=== PATIENT | male | born 1940 | race Caucasian/White ===

== ENCOUNTER 2018-05-11 22:45 | Inpatient (IN) | payer BC ==
[~2018-05-11] VITALS: Ht 167.6 cm; Wt 56.7 kg
[2018-05-11] MEDS ORDERED: dilTIAZem INJ 125 MG in IV DEXTROSE 5% 100ML 100 ML IV PRN (23:15)
--- NOTE | 2018-05-11 23:15 | PHYS DOC ---
Past Medical History Past Medical History: Cancer (prostate, lung, bone) Past Surgical History: Cholecystectomy Additional Past Surgical Histo: R knee, hernia Smoking: Quit Greater Than 1 Year Alcohol Use: None Drug Use: None Adult General Chief Complaint Chief Complaint: WEAKNESS/GENERALIZED HPI HPI Patient is a 77 year old male with PMH of lung, bone, and prostate cancer who presents to the ED with increased weakness in the past week. In addition, a right lateral abdominal mass has become visible in the past week. Patient admits decreased appetite and has not eaten for about 4 days. Pt denies any dizziness or LOC. He has been sleeping for most of the day lately. He does report some chest pain that is sharp, mild and mostly related to position changes. He admits to increased cough with green sputum production over the last two weeks. He denies any fever, chills, nausea or vomiting. Review of Systems Review of Systems Constitutional: Denies fever or chills [] Eyes: Denies change in visual acuity, redness, or eye pain [] HENT: Denies nasal congestion or sore throat [] Respiratory: Cough with sputum production, and SOB. [] Cardiovascular: Mild chest pain, no palpitations.[] GI: Reports abdominal pain; denies nausea, vomiting, or diarrhea [] : Denies dysuria or hematuria [] Musculoskeletal: Denies back pain or joint pain [] Integument: Denies rash or skin lesions [] Neurologic: Denies headache, focal weakness or sensory changes [] Complete systems were reviewed and found to be within normal limits, except as documented in this note. Current Medications Current Medications Current Medications Medications (Trade) Dose Ordered Sig/[facility] Start Time Stop Time Status Last Admin Dose Admin Aspirin (Cari Aspirin) 325 mg 1X ONCE 05/11/18 23:45 05/11/18 23:46 DC 05/11/18 23:42 325 MG Diltiazem HCl (Cardizem Iv Push) 20 mg 1X ONCE 05/11/18 23:45 05/11/18 23:46 DC 05/11/18 23:42 20 MG Diltiazem HCl 125 mg/Dextrose 125 ml @ 5 mls/hr CONT PRN 05/11/18 23:15 05/12/18 23:14 05/11/18 23:43 5 MLS/HR Sodium Chloride 1,000 ml @ 1,000 mls/hr 1X ONCE 05/11/18 23:45 05/12/18 00:44 DC 05/11/18 23:41 1,000 MLS/HR Allergies Allergies Allergies Coded Allergies Type Severity Reaction Last Updated Verified No Known Drug Allergies 05/11/18 No Physical Exam Physical Exam Constitutional: Emaciated, increased pallor, ill-appearing male. [] HENT: Normocephalic, atraumatic,oropharynx dry, nose normal. [] Eyes: conjunctiva normal, no discharge. [] Neck: Normal range of motion, no tenderness, supple, no meningeal signs Cardiovascular: Heart rate regular rhythm, no murmur [] Lungs & Thorax: Bilateral breath sounds clear to auscultation [] Abdomen: Right lateral abdominal mass that is TTP. Abdomen soft, no rebound tenderness Skin: Warm, dry. [] Extremities: No tenderness, ROM intact, no edema. [] Neurologic: Alert and oriented X 3, normal motor function, normal sensory function, no focal deficits noted. [] Psychologic: Affect normal, judgement normal, mood normal. [] Current Patient Data Vital Signs Vital Signs Date Time Temp Pulse Resp B/P (MAP) Pulse Ox O2 Delivery O2 Flow Rate FiO2 05/11/18 23:50 104 18 96 05/11/18 23:42 117/63 Lab Values Laboratory Tests Test 05/11/18 23:12 White Blood Count 5.2 x10^3/uL (4.0-11.0) Red Blood Count 3.53 x10^6/uL (4.30-5.70) L Hemoglobin 10.4 g/dL (13.0-17.5) L Hematocrit 32.1 % (39.0-53.0) L Mean Corpuscular Volume 91 fL (79-100) Mean Corpuscular Hemoglobin 29 pg (25-35) Mean Corpuscular Hemoglobin Concent 32 g/dL (31-37) Red Cell Distribution Width 17.4 % (11.5-14.5) H Platelet Count 139 x10^3/uL (140-400) L Neutrophils (%) (Auto) 85 % (31-73) H Lymphocytes (%) (Auto) 8 % (24-48) L Monocytes (%) (Auto) 5 % (0-9) Eosinophils (%) (Auto) 1 % (0-3) Basophils (%) (Auto) 1 % (0-3) Neutrophils # (Auto) 4.4 x10^3uL (1.8-7.7) Lymphocytes # (Auto) 0.4 x10^3/uL (1.0-4.8) L Monocytes # (Auto) 0.3 x10^3/uL (0.0-1.1) Eosinophils # (Auto) 0.0 x10^3/uL (0.0-0.7) Basophils # (Auto) 0.0 x10^3/uL (0.0-0.2) Segmented Neutrophils % 74 % (35-66) H Band Neutrophils % 10 % (0-9) H Lymphocytes % 9 % (24-48) L Monocytes % 6 % (0-10) Eosinophils % 1 % (0-5) Toxic Granulation Present Platelet Estimate Adequate (ADEQUATE) Anisocytosis Slight Sodium Level 138 mmol/L (136-145) Potassium Level 3.9 mmol/L (3.5-5.1) Chloride Level 103 mmol/L (98-107) Carbon Dioxide Level 25 mmol/L (21-32) Anion Gap 10 (6-14) Blood Urea Nitrogen 40 mg/dL (8-26) H Creatinine 1.0 mg/dL (0.7-1.3) Estimated GFR (Cockcroft-Gault) 72.3 BUN/Creatinine Ratio 40 (6-20) H Glucose Level 124 mg/dL (70-99) H Lactic Acid Level 1.6 mmol/L (0.4-2.0) Calcium Level 8.0 mg/dL (8.5-10.1) L Magnesium Level 2.4 mg/dL (1.8-2.4) Total Bilirubin 0.6 mg/dL (0.2-1.0) Aspartate Amino Transferase (AST) 36 U/L (15-37) Alanine Aminotransferase (ALT) 36 U/L (16-63) Alkaline Phosphatase 254 U/L (46-116) H Creatine Kinase 27 U/L (39-308) L Creatine Kinase MB (Mass) 0.6 ng/mL (0.0-3.6) Creatine Kinase MB Relative Index % (0-4) Troponin I Quantitative < 0.017 ng/mL (0.000-0.055) Total Protein 6.1 g/dL (6.4-8.2) L Albumin 2.0 g/dL (3.4-5.0) L Albumin/Globulin Ratio 0.5 (1.0-1.7) L Laboratory Tests 05/11/18 23:12 Laboratory Tests 05/11/18 23:12 EKG EKG @2303 Afib RVR at 145bpm, NO ST elevation Radiology/Procedures Radiology/Procedures PROCEDURE: CT CHEST ABDOMEN PELVIS WO EXAM: CT Chest, Abdomen and Pelvis without IV contrast CLINICAL HISTORY: weakness, right lateral abdominal swelling/pain COMPARISON: None. TECHNIQUE: Helical CT of the chest, abdomen and pelvis was performed without intravenous contrast. Axial, coronal and sagittal reformatted images were generated. ---PQRS compliance statement - One or more of the following individualized dose reduction techniques were utilized for this study: 1. Automated exposure control 2. Adjustment of the mA and/or kV according to patient size 3. Use of iterative reconstruction technique--- FINDINGS: Lack of intravenous contrast limits evaluation of solid organs, vasculature, and lymph nodes. Chest: Heart is moderately enlarged. Coronary calcifications are seen. No pericardial effusion. Precarinal lymph node measures 1.7 x 1.1 cm. Small AP window lymph nodes are seen. Evaluation for hilar lymphadenopathy limited given noncontrast exam although prominent hilar lymph nodes are suspected. Trace right pleural effusion. No pneumothorax. Left upper lobe airspace opacities are seen with air bronchograms and associated groundglass component. In addition airspace opacities are seen in the middle lobe and right lower lobe. Abdomen and Pelvis: The liver is cirrhotic in morphology. A 1.5 cm right hepatic lobe hypodense lesion is seen. Accounting for postcholecystectomy change, no biliary ductal dilatation. Spleen is enlarged measuring 15.3 cm in length. Mild nodularity of the left adrenal gland. Right adrenal gland is unremarkable. Multiple bilateral nonobstructing renal calculi are seen. In addition renal cortical calcifications are seen. Left interpolar hypodense lesion is too small to accurately characterize, likely cystic. 2 right upper-interpolar hypodense lesions are nonspecific, possibly hemorrhagic/proteinaceous cysts. Pancreas is unremarkable. No small or large bowel dilatation. Moderate colonic stool content is seen. Colonic diverticulosis without CT evidence for acute diverticulitis. Atherosclerotic calcifications of the aorta and main branches are seen. Mild bladder wall thickening, nonspecific. Trace perihepatic ascites. No definite abdominal or pelvic lymphadenopathy by size criteria. Bones: Degenerative changes of the spine are seen. Bilateral L5 pars defects are noted with anterolisthesis of L5 on S1. Multilevel vertebral body compression fractures post spinal augmentation changes. There is mild height loss of the L1 vertebral body with suspected fracture plane extending to the anterior vertebral body, possibly acute. This may correlate with patient's symptoms. IMPRESSION: 1. Left upper lobe parenchymal airspace opacities with air bronchograms are suspicious for consolidative process such as pneumonia. 2. Prominent and enlarged mediastinal lymph nodes, possibly reactive. 3. Liver is cirrhotic in morphology with splenomegaly. 4. Nonspecific hypodense right hepatic lobe lesion is seen. This can be correlated with prior imaging if available otherwise given cirrhosis, this can be further profiled with MRI. 5. L1 vertebral body height loss, possibly acute, this can be correlated with patient's symptoms and prior imaging if available 6. Colonic diverticulosis without evidence for acute diverticulitis. 7. There are 2 hypodense right upper-interpolar renal lesions, possibly hemorrhagic/proteinaceous cysts. This can be further evaluated by ultrasound if prior imaging is not available. Electronically signed by: Aleksandar Hurd MD (05/12/2018 12:49 AM) [facility] Course & Med Decision Making Course & Med Decision Making Mr. Resendiz is a 77 yo male with lung, bone, and prostate cancer that presents with one week of increased weakness, cough, and shortness of breath. On presentation he was in A Fib RVR. A diltiazem drip was started which subsequently improved the RVR. EKG with routine labs were ordered to r/o cardiac pathology. IV fluids administered to improve hydration status. CT chest / abdomen/pelvis with findings of possible pneumonia. BCX obtained. Empiric antibiotics given. SIRS positive with bandemia and tachycardia. Lactic acid WNL. Patient requiring admission for further evaluation and treatment. Discussed with Dr. Rodríguez (admits for PCP) who is in agreement with admission. Discussed findings and plan with patient and family, who acknowledge understanding and agreement. Dragon Disclaimer Dragon Disclaimer This electronic medical record was generated, in whole or in part, using a voice recognition dictation system. Departure Departure Impression: Primary Impression: Atrial fibrillation with RVR Additional Impressions: Weakness Pneumonia Disposition: ADMITTED INPATIENT Admitting Physician: Miles Rodríguez Condition: GUARDED Referrals: SCOT CARRANZA (PCP) Critical Care Time Critical care time was 30 minutes which includes time at bedside, spent in discussion of patient's care with specialists and/or family members, with interpretation of laboratory and/or radiological studies and is exclusive of procedures. Problem Qualifiers Additional Impressions: Pneumonia Pneumonia type: due to unspecified organism Laterality: unspecified laterality Lung location: unspecified part of lung Qualified Codes: J18.9 - Pneumonia, unspecified organism NIYAH RAMOS DO May 11, 2018 23:15
[2018-05-11 23:22] LABS: BASO % 1 % (0-3); EOS % 1 % (0-3); HEMATOCRIT 32.1 % (39.0-53.0); HEMOGLOBIN 10.4 g/dL (13.0-17.5); LYMPH # 0.4 x10^3/uL (1.0-4.8); LYMPH % 8 % (24-48); MEAN CORPUSCULAR HEMOGLOBIN 29 pg (25-35); MEAN CORPUSCULAR HGB CONC 32 g/dL (31-37); MEAN CORPUSCULAR VOLUME 91 fL (79-100); MONO # 0.3 x10^3/uL (0.0-1.1); MONO % 5 % (0-9); NEUT # 4.4 x10^3uL (1.8-7.7); NEUT % 85 % (31-73); PLATELET COUNT 139 x10^3/uL (140-400); RED BLOOD COUNT 3.53 x10^6/uL (4.30-5.70); RED CELL DISTRIBUTION WIDTH 17.4 % (11.5-14.5); WHITE BLOOD COUNT 5.2 x10^3/uL (4.0-11.0)
[2018-05-11 23:36] LABS: GFR 72.3; POTASSIUM 3.9 mmol/L (3.5-5.1)
[2018-05-11 23:38] LABS: % EOS 1 % (0-5)
[2018-05-11 23:39] LABS: % BANDS 10 % (0-9); % LYMPHS 9 % (24-48); % MONOS 6 % (0-10); % SEGS 74 % (35-66); ANISOCYTOSIS SLIGHT; PLT ESTIMATE ADEQUATE (ADEQUATE); TOXIC GRANULATION PRESENT
[2018-05-11 23:42] LABS: ALBUMIN/GLOBULIN RATIO 0.5 (1.0-1.7); MAGNESIUM 2.4 mg/dL (1.8-2.4); TOTAL BILIRUBIN 0.6 mg/dL (0.2-1.0); TOTAL PROTEIN 6.1 g/dL (6.4-8.2)
[2018-05-11] MEDS ORDERED: ASPIRIN 325 MG TABLET PO ONE (23:45)
[2018-05-11] MEDS ORDERED: dilTIAZem IV PUSH 25 MG/5 ML VIAL IVP ONE (23:45)
[2018-05-11] MEDS ORDERED: IV NORMAL SALINE 1000ML BAG 1,000 ML IV ONE (23:45)
[2018-05-11 23:50] LABS: CREATINE KINASE 27 U/L (39-308)
[2018-05-12] MEDS ORDERED: ONDANSETRON PF 4 MG/2 ML VIAL. IV PRN
[2018-05-12] MEDS ORDERED: fentaNYL PF VIAL 100 MCG/2 ML VIAL IV PRN
--- NOTE | 2018-05-12 00:51 | RAD ---
EXAM: CT Chest, Abdomen and Pelvis without IV contrast CLINICAL HISTORY: weakness, right lateral abdominal swelling/pain COMPARISON: None. TECHNIQUE: Helical CT of the chest, abdomen and pelvis was performed without intravenous contrast. Axial, coronal and sagittal reformatted images were generated. ---PQRS compliance statement - One or more of the following individualized dose reduction techniques were utilized for this study: 1. Automated exposure control 2. Adjustment of the mA and/or kV according to patient size 3. Use of iterative reconstruction technique--- FINDINGS: Lack of intravenous contrast limits evaluation of solid organs, vasculature, and lymph nodes. Chest: Heart is moderately enlarged. Coronary calcifications are seen. No pericardial effusion. Precarinal lymph node measures 1.7 x 1.1 cm. Small AP window lymph nodes are seen. Evaluation for hilar lymphadenopathy limited given noncontrast exam although prominent hilar lymph nodes are suspected. Trace right pleural effusion. No pneumothorax. Left upper lobe airspace opacities are seen with air bronchograms and associated groundglass component. In addition airspace opacities are seen in the middle lobe and right lower lobe. Abdomen and Pelvis: The liver is cirrhotic in morphology. A 1.5 cm right hepatic lobe hypodense lesion is seen. Accounting for postcholecystectomy change, no biliary ductal dilatation. Spleen is enlarged measuring 15.3 cm in length. Mild nodularity of the left adrenal gland. Right adrenal gland is unremarkable. Multiple bilateral nonobstructing renal calculi are seen. In addition renal cortical calcifications are seen. Left interpolar hypodense lesion is too small to accurately characterize, likely cystic. 2 right upper-interpolar hypodense lesions are nonspecific, possibly hemorrhagic/proteinaceous cysts. Pancreas is unremarkable. No small or large bowel dilatation. Moderate colonic stool content is seen. Colonic diverticulosis without CT evidence for acute diverticulitis. Atherosclerotic calcifications of the aorta and main branches are seen. Mild bladder wall thickening, nonspecific. Trace perihepatic ascites. No definite abdominal or pelvic lymphadenopathy by size criteria. Bones: Degenerative changes of the spine are seen. Bilateral L5 pars defects are noted with anterolisthesis of L5 on S1. Multilevel vertebral body compression fractures post spinal augmentation changes. There is mild height loss of the L1 vertebral body with suspected fracture plane extending to the anterior vertebral body, possibly acute. This may correlate with patient's symptoms. IMPRESSION: 1. Left upper lobe parenchymal airspace opacities with air bronchograms are suspicious for consolidative process such as pneumonia. 2. Prominent and enlarged mediastinal lymph nodes, possibly reactive. 3. Liver is cirrhotic in morphology with splenomegaly. 4. Nonspecific hypodense right hepatic lobe lesion is seen. This can be correlated with prior imaging if available otherwise given cirrhosis, this can be further profiled with MRI. 5. L1 vertebral body height loss, possibly acute, this can be correlated with patient's symptoms and prior imaging if available 6. Colonic diverticulosis without evidence for acute diverticulitis. 7. There are 2 hypodense right upper-interpolar renal lesions, possibly hemorrhagic/proteinaceous cysts. This can be further evaluated by ultrasound if prior imaging is not available. Electronically signed by: Aleksandar Hurd MD (05/12/2018 12:49 AM) [facility]
[2018-05-12 01:15] VITALS: BP 103/56
[2018-05-12] MEDS ORDERED: VANCOMYCIN PER PHARMACY MC PRN ×2 (01:15→12:30)
[2018-05-12] MEDS ORDERED: PIPERACILLIN/TAZOBACTAM 4.5 GM in IV NORMAL SALINE 100ML 100 ML IV ONE (01:30)
[2018-05-12] MEDS ORDERED: VANCOMYCIN 1.5 GM in IV NORMAL SALINE 500ML BAG 500 ML IV ONE (02:00)
[2018-05-12] MEDS ORDERED: VIT1TABL32 PO (02:26)
[2018-05-12] MEDS ORDERED: OXYC30TA64 PO (02:26)
[2018-05-12] MEDS ORDERED: MULT-659 PO (02:26)
[2018-05-12] MEDS ORDERED: LEVO25TA4 PO (02:26)
[2018-05-12] MEDS ORDERED: COLC1TAB PO (02:26)
[2018-05-12] MEDS ORDERED: OXYC5TAB4 PO (02:26)
[2018-05-12] MEDS ORDERED: LOSA-73 PO (02:26)
[2018-05-12] MEDS ORDERED: FLUT1BLS3 IH (02:26)
[2018-05-12] MEDS ORDERED: TRAM50TA PO (02:26)
[2018-05-12] MEDS ORDERED: TAMS0.4C2 PO (02:26)
[2018-05-12] MEDS ORDERED: THIA100T57 PO (02:26)
[2018-05-12 03:00] VITALS: BP 87/54
[2018-05-12] MEDS ORDERED: IV NORMAL SALINE 500ML BAG 500 ML IV ONE (03:00)
--- NOTE | 2018-05-12 03:59 | NUR ---
Pharmacy Vancomycin Dosing Note S:Consulted to monitor and dose vancomycin started 05/12/18. O:CAMILLE DARBY is a 77 year old M with Pneumonia . Height: 5 feet, 6 inches Weight: 58.054005 kg [place] Body Weight: 63.80 Adjusted Body Weight: 61.88 Dosing Weight: Actual Other Antibiotics: LEVOFLOXACIN 750 MG Q24H LABS: Last BUN: 40 Last Creatinine: 1 Creatinine Clearance: 51 mL/min Last WBC: 5.2 Last Procalcitonin: Tmax (past 24 hours): Microbiology: I/O: Drug Levels: Last level: on at Last dose given 05/12/18 at 0200 Vancomycin Dosing: Loading Dose: 1500 mg x1 Dosing Weight: Actual Target Trough: 15-20 A: Based on: WT AND CRCL P: 1. Begin Vancomycin 1000 mg IV q18h 2. Follow up Trough level on 05/13/18 at 1330 3. Pharmacy will continue to monitor, follow and adjust therapy as needed. REANNA RM RPH, 05/12/18 [id number] Signed: 05/12/18 at 358 by REANNA RM RPH PHA
[2018-05-12] MEDS: IV NORMAL SALINE 1000ML BAG 1,000 ML IV SCH ×2 (04:06→08:23)
[2018-05-12 07:10] VITALS: BP 100/67
--- NOTE | 2018-05-12 10:50 | EKG ---
[facility] [address] [place] [address] Test Date: 2018-05-11 Test Time: 23:03:01 Pat Name: CAMILLE DARBY Department: Room: 201 1 Gender: M [employer]: : [id number] Requested By: NIYAH RAMOS Order Number: [id number] Reading MD: Gabino Dover MD Measurements Intervals [place] Rate: 145 P: [place]: QRS: -112 QRSD: 132 T: 54 QT: 318 QTc: 497 Interpretive Statements PROBABLE ATRIAL FIBRILLATION WITH ABERRANCY RBBB CANNOT RULE OUT PACING ARTIFACT Electronically Signed On 05-15-2018 10:16:19 [employer] by Gabino Dover MD
[2018-05-12 11:08] VITALS: BP 112/67
[2018-05-12] MEDS ORDERED: DIGOXIN IV 500 MCG/2 ML AMPUL. IV ONE (11:15)
[2018-05-12] MEDS ORDERED: traMADol 50 MG TABLET PO PRN (12:15)
[2018-05-12] MEDS ORDERED: oxyCODONE IR 5 MG TABLET PO PRN (12:15)
--- NOTE | 2018-05-12 12:32 | PDOC ---
Provider Note Provider Note Pt seen.H&P dictated. #[id number] OZZIE BUTCHER MD May 12, 2018 12:32
[2018-05-12] MEDS ORDERED: BUDESONIDE 0.5 MG/2 ML NEBU. NEB SCH (13:00)
[2018-05-12] MEDS ORDERED: TAMSULOSIN 0.4 MG CAP.ER.24H. PO SCH (13:00)
[2018-05-12] MEDS ORDERED: oxyCODONE ER 15 MG TAB.ER.12H PO SCH (13:00)
[2018-05-12] MEDS ORDERED: LEVOTHYROXINE 25 MCG TABLET. PO SCH (13:00)
[2018-05-12] MEDS ORDERED: THIAMINE 100 MG TABLET. PO SCH (13:00)
[2018-05-12] MEDS ORDERED: ALBUTEROL SULFATE 2.5 MG/3 ML NEBU. NEB SCH (13:00)
[2018-05-12] MEDS ORDERED: IPRATRPIUM/ALBUTEROL 0.5/2.5MG 3 ML NEBU. NEB ONE (13:00)
[2018-05-12] MEDS ORDERED: LOSARTAN POTASSIUM 50 MG TABLET. PO SCH (13:00)
[2018-05-12] MEDS ORDERED: MULTIVITAMIN I-VITE TABLET. PO SCH (13:00)
[2018-05-12] MEDS ORDERED: PIPERACILLIN/TAZOBACTAM 3.375 GM in IV NORMAL SALINE 50ML 50 ML IV SCH (13:00)
--- NOTE | 2018-05-12 13:13 | PDOC2 ---
CONSULT Date of Consult Date of Consult DATE: 05/12/18 TIME: 13:08 Reason for Consult Reason for Consult: Atrial fibrillation, rapid Referring Physician Referring Physician: Dr. Rodríguez Identification/Chief Complaint Chief Complaint Weakness Source Source: Caregiver History of Present Illness Reason for Visit: The patient is a 77-year-old male with metastatic lung, bone and prostate cancer. He is followed by the oncology group. His family brought him to the emergency room for progressive weakness. He also has had decreased oral intake over the last several days. Patient was found to be in rapid atrial fibrillation on initial admission. He was treated with IV Cardizem for initial rate control but his blood pressure declined excessively. His rate is now 108. His blood pressure has improved. He continues to feel weak but is responsive. He is received fluid and antibiotics overnight. Past Medical History Cardiovascular: HTN Heme/Onc: Cancer Past Surgical History Past Surgical History: Cholecystectomy, Hernia Repair Family History Family History: Hypertension Social History Quit ALCOHOL: none Current Problem List Problem List Problems Medical Problems: (1) Atrial fibrillation with RVR Status: Acute (2) Pneumonia Status: Acute Current Medications Current Medications Current Medications Sodium Chloride 1,000 ml @ 1,000 mls/hr 1X ONCE IV Last administered on at 23:41; Start 05/11/18 at 23:45; Stop 05/12/18 at 00:44; Status DC Aspirin (Cari Aspirin) 325 mg 1X ONCE PO Last administered on 05/11/18at 23:42 ; Start 05/11/18 at 23:45; Stop 05/11/18 at 23:46; Status DC Diltiazem HCl (Cardizem Iv Push) 20 mg 1X ONCE IVP Last administered on at 23:42; Start 05/11/18 at 23:45; Stop 05/11/18 at 23:46; Status DC Diltiazem HCl 125 mg/Dextrose 125 ml @ 5 mls/hr CONT PRN IV SEE I/O RECORD Last administered on 05/11/18at 23:43; Start 05/11/18 at 23:15; Stop 05/12/18 at 23: 14 Ondansetron HCl (Zofran) 4 mg PRN Q8HRS PRN IV NAUSEA/VOMITING 1ST CHOICE Last administered on 05/12/18at 00:35; Start 05/12/18 at 00:00; Stop 05/12/18 at 23:59 Fentanyl Citrate (Fentanyl 2ml Vial) 50 mcg PRN Q2HR PRN IV SEVERE PAIN Last administered on 05/12/18at 00:35; Start 05/12/18 at 00:00 Piperacillin Sod/ Tazobactam Sod 4.5 gm/Sodium Chloride 100 ml @ 200 mls/hr 1X ONCE IV Last administered on 05/12/18at 01:54; Start 05/12/18 at 01:30; Stop 05/12/18 at 01:59; Status DC Levofloxacin/ Dextrose 150 ml @ 100 mls/hr Q24H IV Last administered on at 01:55; Start 05/12/18 at 01:00 Vancomycin HCl 1.5 gm/Sodium Chloride 500 ml @ 250 mls/hr 1X ONCE IV Last administered on 05/12/18at 01:55; Start 05/12/18 at 02:00; Stop 05/12/18 at 03:59; Status DC Vancomycin HCl (Vanco Per Pharmacy) 1 each PRN DAILY PRN MC SEE COMMENTS Last administered on 05/12/18at 03:59; Start 05/12/18 at 01:15 Sodium Chloride 500 ml @ 500 mls/hr 1X ONCE IV Last administered on 05/12/18at 04:06; Start 05/12/18 at 03:00; Stop 05/12/18 at 03:59; Status DC Sodium Chloride 1,000 ml @ 75 mls/hr [id number] IV Last administered on 05/12/18at 08:23; Start 05/12/18 at 03:30 Vancomycin HCl 1 gm/Sodium Chloride 250 ml @ 250 mls/hr Q18H IV ; Start at 20:00 Vancomycin HCl (Vancomycin Trough Level) 1 each 1X ONCE MC ; Start 05/13/18 at 13:30; Stop 05/13/18 at 13:31 Digoxin (Lanoxin) 250 mcg 1X ONCE IV Last administered on 05/12/18at 11:54; Start 05/12/18 at 11:15; Stop 05/12/18 at 11:16; Status DC Losartan Potassium (Cozaar) 50 mg DAILY PO ; Start 05/12/18 at 13:00 Oxycodone HCl (Roxicodone) 5 mg PRN Q4HRS PRN PO SEVERE PAIN; Start 05/12/18 at 12:15 Tamsulosin HCl (Flomax) 0.4 mg DAILY PO ; Start 05/12/18 at 13:00 Tramadol HCl (Ultram) 50 mg PRN Q6HRS PRN PO MILD-MODERATE PAIN; Start 05/12/18 at 12:15 Multivitamins/ Minerals (I-Marcus) 1 tab DAILY PO ; Start 05/12/18 at 13:00 Non-Formulary Medication (Colchicine/ Probenecid (Probenecid-Colchicine Tabs)) 1 each DAILY PO ; Start 05/13/18 at 09:00; Status UNV Non-Formulary Medication (Fluticasone/ Umeclidin/ Vilanter (Trelegy Ellipta 100- 62.5-25)) 1 each DAILY IH ; Start 05/13/18 at 09:00; Stop 05/13/18 at 09:00; Status DC Levothyroxine Sodium (Synthroid) 25 mcg DAILY06 PO ; Start 05/12/18 at 13:00 Non-Formulary Medication (Multivits,Ca,Min/ Iron/FA/Lycop (Centrum Men's Tablet) ) 1 each DAILY PO ; Start 05/13/18 at 09:00; Status UNV Oxycodone HCl (OxyCONTIN) 30 mg Q12HR PO ; Start 05/12/18 at 13:00 Thiamine Mononitrate (Vitamin B-1) 100 mg DAILY PO ; Start 05/12/18 at 13:00 Budesonide (Pulmicort) 0.5 mg RTBID NEB ; Start 05/12/18 at 13:00 Albuterol Sulfate (Ventolin Neb Soln) 2.5 mg RTQID NEB ; Start 05/12/18 at 13:00 Piperacillin Sod/ Tazobactam Sod 3.375 gm/Sodium Chloride 50 ml @ 100 mls/hr Q6HRS IV ; Start 05/12/18 at 13:00 Vancomycin HCl (Vanco Per Pharmacy) 1 each PRN DAILY PRN MC SEE COMMENTS; Start 05/12/18 at 12:30; Stop 05/12/18 at 12:39; Status DC Albuterol/ Ipratropium (Duoneb) 3 ml RTQID NEB ; Start 05/12/18 at 16:00 Albuterol/ Ipratropium (Duoneb) 3 ml 1X ONCE NEB ; Start 05/12/18 at 13:00; Stop 05/12/18 at 13:01; Status DC Enoxaparin Sodium (Lovenox 40mg Syringe) 40 mg Q24H SQ ; Start 05/12/18 at 14:00 Active Scripts Active Reported Tramadol Hcl 50 Mg Tablet 50 Mg PO Q6HRS PRN Vitamin B-1 (Thiamine Hcl) 100 Mg Tablet 100 Mg PO DAILY Tamsulosin Hcl 0.4 Mg Cap.er.24h 0.4 Mg PO DAILY Oxycontin (Oxycodone HCl) 30 Mg Tab.er.12h 30 Mg PO BID Oxycodone Hcl Immed.release (Oxycodone Hcl) 5 Mg Tablet 5 Mg PO PRN Q4HRS PRN Ocuvite Tablet (Vit A,C & E/Lutein/Minerals) 1 Each Tablet 1 Each PO DAILY Losartan Potassium 50 Mg Tablet 50 Mg PO DAILY Levothyroxine Sodium 25 Mcg Tablet 25 Mcg PO DAILYAC Probenecid-Colchicine Tabs (Colchicine/Probenecid) 1 Each Tablet 1 Each PO DAILY Centrum Men's Tablet (Multivits,Ca,Min/Iron/FA/Lycop) 1 Each Tablet 1 Each PO DAILY Trelegy Ellipta 100-62.5-25 (Fluticasone/Umeclidin/Vilanter) 1 Each Blst.w.dev 1 Each IH DAILY Allergies Allergies: Coded Allergies: No Known Drug Allergies (Unverified , 05/11/18) ROS General: YES: Fatigue, Malaise Respiratory: YES: SOB with excertion Physical Exam General: mild distress Lungs: Other (mildly decreased breath sounds) Heart: Other (irregularly irregular rhythm) Abdomen: Normal bowel sounds Vitals VITALS Vital Signs Date Time Temp Pulse Resp B/P (MAP) Pulse Ox O2 Delivery O2 Flow Rate FiO2 05/12/18 11:54 126 05/12/18 11:08 97.0 24 112/67 (82) 100 Nasal Cannula 2.0 97.0 Labs Labs Laboratory Tests Test 05/11/18 23:12 05/12/18 00:12 05/12/18 03:00 White Blood Count 5.2 x10^3/uL (4.0-11.0) Red Blood Count 3.53 x10^6/uL (4.30-5.70) Hemoglobin 10.4 g/dL (13.0-17.5) Hematocrit 32.1 % (39.0-53.0) Mean Corpuscular Volume 91 fL (79-100) Mean Corpuscular Hemoglobin 29 pg (25-35) Mean Corpuscular Hemoglobin Concent 32 g/dL (31-37) Red Cell Distribution Width 17.4 % (11.5-14.5) Platelet Count 139 x10^3/uL (140-400) Neutrophils (%) (Auto) 85 % (31-73) Lymphocytes (%) (Auto) 8 % (24-48) Monocytes (%) (Auto) 5 % (0-9) Eosinophils (%) (Auto) 1 % (0-3) Basophils (%) (Auto) 1 % (0-3) Neutrophils # (Auto) 4.4 x10^3uL (1.8-7.7) Lymphocytes # (Auto) 0.4 x10^3/uL (1.0-4.8) Monocytes # (Auto) 0.3 x10^3/uL (0.0-1.1) Eosinophils # (Auto) 0.0 x10^3/uL (0.0-0.7) Basophils # (Auto) 0.0 x10^3/uL (0.0-0.2) Segmented Neutrophils % 74 % (35-66) Band Neutrophils % 10 % (0-9) Lymphocytes % 9 % (24-48) Monocytes % 6 % (0-10) Eosinophils % 1 % (0-5) Toxic Granulation Present Platelet Estimate Adequate (ADEQUATE) Anisocytosis Slight Sodium Level 138 mmol/L (136-145) Potassium Level 3.9 mmol/L (3.5-5.1) Chloride Level 103 mmol/L (98-107) Carbon Dioxide Level 25 mmol/L (21-32) Anion Gap 10 (6-14) Blood Urea Nitrogen 40 mg/dL (8-26) Creatinine 1.0 mg/dL (0.7-1.3) Estimated GFR (Cockcroft-Gault) 72.3 BUN/Creatinine Ratio 40 (6-20) Glucose Level 124 mg/dL (70-99) Lactic Acid Level 1.6 mmol/L (0.4-2.0) Calcium Level 8.0 mg/dL (8.5-10.1) Magnesium Level 2.4 mg/dL (1.8-2.4) Total Bilirubin 0.6 mg/dL (0.2-1.0) Aspartate Amino Transf (AST/SGOT) 36 U/L (15-37) Alanine Aminotransferase (ALT/SGPT) 36 U/L (16-63) Alkaline Phosphatase 254 U/L (46-116) Creatine Kinase 27 U/L (39-308) Creatine Kinase MB (Mass) 0.6 ng/mL (0.0-3.6) Creatine Kinase MB Relative Index % (0-4) Troponin I Quantitative < 0.017 ng/mL (0.000-0.055) < 0.017 ng/mL (0.000-0.055) Total Protein 6.1 g/dL (6.4-8.2) Albumin 2.0 g/dL (3.4-5.0) Albumin/Globulin Ratio 0.5 (1.0-1.7) Ammonia 11 mcmol/L (11-34) Laboratory Tests Test 05/11/18 23:12 05/12/18 00:12 05/12/18 03:00 White Blood Count 5.2 x10^3/uL (4.0-11.0) Red Blood Count 3.53 x10^6/uL (4.30-5.70) Hemoglobin 10.4 g/dL (13.0-17.5) Hematocrit 32.1 % (39.0-53.0) Mean Corpuscular Volume 91 fL (79-100) Mean Corpuscular Hemoglobin 29 pg (25-35) Mean Corpuscular Hemoglobin Concent 32 g/dL (31-37) Red Cell Distribution Width 17.4 % (11.5-14.5) Platelet Count 139 x10^3/uL (140-400) Neutrophils (%) (Auto) 85 % (31-73) Lymphocytes (%) (Auto) 8 % (24-48) Monocytes (%) (Auto) 5 % (0-9) Eosinophils (%) (Auto) 1 % (0-3) Basophils (%) (Auto) 1 % (0-3) Neutrophils # (Auto) 4.4 x10^3uL (1.8-7.7) Lymphocytes # (Auto) 0.4 x10^3/uL (1.0-4.8) Monocytes # (Auto) 0.3 x10^3/uL (0.0-1.1) Eosinophils # (Auto) 0.0 x10^3/uL (0.0-0.7) Basophils # (Auto) 0.0 x10^3/uL (0.0-0.2) Segmented Neutrophils % 74 % (35-66) Band Neutrophils % 10 % (0-9) Lymphocytes % 9 % (24-48) Monocytes % 6 % (0-10) Eosinophils % 1 % (0-5) Toxic Granulation Present Platelet Estimate Adequate (ADEQUATE) Anisocytosis Slight Sodium Level 138 mmol/L (136-145) Potassium Level 3.9 mmol/L (3.5-5.1) Chloride Level 103 mmol/L (98-107) Carbon Dioxide Level 25 mmol/L (21-32) Anion Gap 10 (6-14) Blood Urea Nitrogen 40 mg/dL (8-26) Creatinine 1.0 mg/dL (0.7-1.3) Estimated GFR (Cockcroft-Gault) 72.3 BUN/Creatinine Ratio 40 (6-20) Glucose Level 124 mg/dL (70-99) Lactic Acid Level 1.6 mmol/L (0.4-2.0) Calcium Level 8.0 mg/dL (8.5-10.1) Magnesium Level 2.4 mg/dL (1.8-2.4) Total Bilirubin 0.6 mg/dL (0.2-1.0) Aspartate Amino Transf (AST/SGOT) 36 U/L (15-37) Alanine Aminotransferase (ALT/SGPT) 36 U/L (16-63) Alkaline Phosphatase 254 U/L (46-116) Creatine Kinase 27 U/L (39-308) Creatine Kinase MB (Mass) 0.6 ng/mL (0.0-3.6) Creatine Kinase MB Relative Index % (0-4) Troponin I Quantitative < 0.017 ng/mL (0.000-0.055) < 0.017 ng/mL (0.000-0.055) Total Protein 6.1 g/dL (6.4-8.2) Albumin 2.0 g/dL (3.4-5.0) Albumin/Globulin Ratio 0.5 (1.0-1.7) Ammonia 11 mcmol/L (11-34) Images Images CT scan shows mild cardiomegaly with no pericardial effusion Assessment/Plan Assessment/Plan 1. Metastatic lung, bone and prostate cancer. Patient is followed by the oncology service. He has had progressive weakness over the past several days but is improved mildly today after IV fluids and antibiotics as per his family' s report. 2. Atrial fibrillation. Initial rapid rate has now improved. IV Cardizem as this being Senior due to mild hypotension patient has been given additional dose of digoxin. Would prefer that he stay in the hospital overnight and will treat with oral calcium channel blockers if his pressure allows. However he is considering leaving the hospital. We did discuss this with both the patient and his family. 3. Possible bone marrow pneumonia. IV antibiotics have been started. Thank you for allowing us to participate in the care of your patient. VINOD MCKEON MD May 12, 2018 13:13
--- NOTE | 2018-05-12 13:27 | NUR ---
Pt left AMA, pt had seen Dr. Rodríguez and Dr. Lane prior to leaving. Pt understands risks of leaving with Afib and PNA, states that he still wants to leave. Pt iv d/c'd without complications. Security escorted out with staff. NSG planting supervisor and Dr. Rodríguez aware of pt leaving
--- NOTE | 2018-05-12 13:37 | NUR ---
FACULTY CO-SIGN I have reviewed the documentation by [employer] Emilia Massey:
[2018-05-12] MEDS ORDERED: ENOXAPARIN 40 MG/0.4 ML SYRINGE. SQ SCH (14:00)
--- NOTE | 2018-05-12 14:16 | HP ---
ADMIT DATE: 05/11/2018 LOCATION: 201. REASON FOR ADMISSION TO THE HOSPITAL:. 1. New onset of atrial fibrillation with rapid ventricular response. 2. Infiltrates in the lung, possible pneumonia. HISTORY OF PRESENT ILLNESS: The patient is a 77-year-old male, patient of Dr. Reyes. The patient has a history of lung cancer, and he has been getting chemotherapy from . He finished 3 courses of chemo, 3 more to go. Last one was 10 days ago. He also has history of COPD, was recently placed on oxygen by his primary care doctor, Dr. Reyes. The patient has been weak yesterday and not able to mobile. He lives with his son, is able to ambulate with a walker. When he came to the Emergency Room, his heart rate was high at 130, atrial fibrillation with rapid ventricular response, and the CT scan shows infiltrate in the left upper lung. He was treated with vancomycin, Zosyn and Levaquin. The patient is also seen by Cardiology. PAST MEDICAL HISTORY: As mentioned above, has history of lung cancer, COPD, hypertension, hyperlipidemia. PAST SURGICAL HISTORY: Had a gallbladder surgery, ventral hernia repair surgery and is getting treatment from . ALLERGIES: No known allergies. PERSONAL HISTORY: Smoked for at least 40-50 years, quit recently. Denies alcohol. SOCIAL HISTORY: The patient lives with his son, is mobile with a walker. MEDICATIONS AT HOME: Probenecid, colchicine one tablet daily, fluticasone Trileptal, inhaler, levothyroxine 25 mcg daily, losartan 50 mg daily, vitamin daily, oxycodone 5 mg q. 6, oxycodone 30 mg q.12 twice a day, Flomax 0.4 daily, thiamine 1 daily, tramadol q.6. FAMILY HISTORY: Unremarkable. SOCIAL HISTORY: Lives with his family. REVIEW OF SYSTEMS: Complains of feeling tired, not feeling good and also the patient says he does not want to stay in the hospital. He wants to go home and denies coughing up any yellow sputum or fever. PHYSICAL EXAMINATION: GENERAL: The patient looks older than his age, chronic COPD, on oxygen. VITAL SIGNS: Temperature 98, pulse 130, respirations 22, blood pressure 120/63, 98 on room air. HEENT: Head is atraumatic. Pupils equal. Oral cavity: No congestion. NECK: Supple. Thyroid not enlarged. JVD not elevated. CHEST: COPD pattern. CARDIOVASCULAR: S1, S2 regular, tachycardic. LUNGS: Diminished breath sounds, few crackles. ABDOMEN: Soft, has a scar of ventral hernia, has a mesh palpable under the skin. No mass palpable. EXTERNAL GENITALIA: No [place]. RECTAL: Deferred. EXTREMITIES: No calf tenderness, no edema. NEUROLOGIC: Moving all extremities. No focal deficits noted. LABORATORY DATA: Shows a white count of 5, hemoglobin 10.4, platelets 139. Electrolytes show sodium 138, potassium 3.9, chloride 103, bicarbonate 25, anion gap 10, BUN 40, creatinine 1.0. Glucose 124. Lactic acid 1.6. LFTs were normal. Ammonia was 11. CPK negative. Troponin was negative. He had a CT scan of the abdomen, chest and pelvis, which showed a left upper lobe parenchymal airspace opacities with air bronchograms, possible consolidation, prominent enlarged mediastinal lymph nodes, cirrhotic liver with splenomegaly hypodense right hepatic lobe lesion, L1 vertebral body height loss, diverticulosis. 2 hypodense lesions in the kidney. EKG shows atrial fibrillation with rapid ventricular response. FINAL IMPRESSION:Pneumonia post obstructive?from Lung cancer. 1. New onset of atrial fibrillation with rapid ventricular response. 2. Chronic obstructive pulmonary disease. 3. History of lung cancer, getting chemotherapy at . 4. Hypothyroidism. 5. Diverticulosis. 6. General debility. 7. Lesions in the liver and also kidney. PLAN: At this time, the patient was admitted to the hospital, was given Cardizem drip to control heart rate. Seen by Cardiology and given the history of cancer with possible lesions, I am not sure he is a candidate for anticoagulation at this point, and we will have Oncology see the patient. The patient is on home oxygen as well as nebulizer machine at home: The patient is on IV antibiotics of vancomycin, Zosyn and Levaquin, but the patient is insisting on going home. Probably may send him home on Levaquin if the patient is persistently insisting. OZZIE BUTCHER MD DR: HAWK/blessing JOB#: [id number] / [id number] DR MEREDITH Queen
[2018-05-12] MEDS ORDERED: IPRATRPIUM/ALBUTEROL 0.5/2.5MG 3 ML NEBU. NEB SCH (16:00)
[2018-05-12] MEDS ORDERED: VANCOMYCIN 1 GM in IV NORMAL SALINE 250ML 250 ML IV SCH (20:00)
[2018-05-13] MEDS ORDERED: PROBENECID PO SCH (09:00)
[2018-05-13] MEDS ORDERED: COLCHICINE PO SCH (09:00)
[2018-05-13] MEDS ORDERED: NON FORMULARY ITEM (Fluticasone/Umeclidin/Vilanter (Trelegy Ellipta 100-62.5-25) 1 EACH) IH SCH (09:00)
[2018-05-13] MEDS ORDERED: IRON PO SCH (09:00)
[2018-05-13] MEDS ORDERED: LYCOP PO SCH (09:00)
[2018-05-13] MEDS ORDERED: MULTIVITS CA MIN PO SCH (09:00)
[2018-05-13] MEDS ORDERED: [UNRECOGNIZED DRUG - OTHER] PO SCH (09:00)
--- NOTE | 2018-05-14 15:09 | PDOC ---
Provider Note Provider Note Dischare summary dictated. #[id number] OZZIE BUTCHER MD May 14, 2018 15:09
--- NOTE | 2018-05-14 21:45 | DS ---
DATE OF DISCHARGE: 05/12/2018 REASON FOR ADMISSION TO THE HOSPITAL: 1. Atrial fibrillation with rapid ventricular response. 2. Possible postobstructive pneumonia. CONSULTATIONS: Dr. Lane, Dr. Nair, Dr. Hopson. DISPOSITION: The patient went against medical advice. HOSPITAL COURSE: The patient is a 77-year-old male with history of COPD, smoker, was found to have lung cancer, nonsmall CA and he was getting immunotherapy from Dr. Hopson. He finished 3 courses, 3 more courses to go. The patient was recently placed on oxygen and breathing treatment by primary care, Dr. Reyes. The patient came in, was found to have short of breath with atrial fibrillation, rapid ventricular response rate of 130, was given IV Cardizem and given fluids. The patient showed some infiltrate in the lung, possibly postobstructive in the left lung, probably from the lung cancer, was given antibiotics. The patient seen Cardiology, was recommended to stay in the hospital for the next 24 hours, but he refused when taken at the medical advice. Pulmonary consult was requested, but the patient was seen before he could see and also consultation by Dr. Hopson, Hematology, was requested even before he could see. FINAL DIAGNOSES: 1. Atrial fibrillation with rapid ventricular response, new onset. 2. Chronic obstructive pulmonary disease on home oxygen. 3. Possible postobstructive pneumonia.H/O Lung cancer getting immune treatment. The patient discharged against medical advice. OZZIE BUTCHER MD DR: HAWK/blessing JOB#: [id number] / [id number] SCOT Queen
== END 2018-05-12 13:28 | disposition left against medical advice (07) | DRG 308 ==
LOC: ER 22:45 → 2 NORTH 23:53
PROVIDERS: ADMIT Internal Medicine; ATTEND Internal Medicine
DX: I48.91 Unspecified atrial fibrillation (principal); J18.9 Pneumonia, unspecified organism; J44.0 Chronic obstructive pulmonary disease with (acute) lower respiratory infection; C34.90 Malignant neoplasm of unspecified part of unspecified bronchus or lung; C41.9 Malignant neoplasm of bone and articular cartilage, unspecified; C61 Malignant neoplasm of prostate; E78.5 Hyperlipidemia, unspecified; I11.9 Hypertensive heart disease without heart failure; E03.9 Hypothyroidism, unspecified; K76.9 Liver disease, unspecified; N28.89 Other specified disorders of kidney and ureter; K57.30 Diverticulosis of large intestine without perforation or abscess without bleeding; Z53.21 Procedure and treatment not carried out due to patient leaving prior to being seen by health care provider; R19.00 Intra-abdominal and pelvic swelling, mass and lump, unspecified site; I95.9 Hypotension, unspecified; Z82.49 Family history of ischemic heart disease and other diseases of the circulatory system; Z87.891 Personal history of nicotine dependence; Z90.49 Acquired absence of other specified parts of digestive tract; Z79.82 Long term (current) use of aspirin; Z79.899 Other long term (current) drug therapy; Z92.21 Personal history of antineoplastic chemotherapy; Z99.81 Dependence on supplemental oxygen
CPT/HCPCS: 36415; 71250; 74176; 80053; 82140; 82553; 83605; 83735; 84484; 85007; 85025; 87040; 93005; 96374; 96375; J1160; J1956; J2405; J2543; J3010; J3370; J3490; J7030; J7040; 99285-25